=== PATIENT | male | born 1980 | race Two or more races ===

== ENCOUNTER 2019-07-25 22:50 | Emergency (ER) | payer SELFPAY ==
[~2019-07-25] VITALS: Ht 177.8 cm; Wt 81.6 kg
[2019-07-26 02:23] VITALS: BP 119/70
[2019-07-26] MEDS ORDERED: KETOROLAC TROMETH 30 MG/ML 1ML VIAL IV ONE (02:45)
== END 2019-07-26 03:09 | disposition home or self-care (01) ==
LOC: ER 22:50
DX: M79.89 Other specified soft tissue disorders (principal); V18.2XXA Unspecified pedal cyclist injured in noncollision transport accident in nontraffic accident, initial encounter
CPT/HCPCS: 73130; 96372; 99283; J1885